=== PATIENT | female | born 1960 | race Two or more races ===

== ENCOUNTER 2017-06-27 19:11 | Emergency (ER) | payer OTHER ==
[~2017-06-27] VITALS: Ht 175.3 cm; Wt 111.6 kg
--- NOTE | 2017-06-27 19:15 | NUR ---
PT AMBULATORY TO ER BED 6. PT BIB SELF S/P GLF, C/O PAIN IN BILAT KNEES AND BILAT WRIST. NOTED HEMATOMA OVER RIGHT EYE, DENIES LOC. PT PLACED IN GOWN AND ON MERCHANDISING COORDINATOR. VSS/RESP EVEN UNLABORED/NAD NOTED/SKIN WARM AND DRY/DENIES N-V-D/AFEBRILE/AOX4. AWAITING MD ARANA.
--- NOTE | 2017-06-27 19:20 | NUR ---
MD AWARE OF PT B/P. NO NEW ORDERS RECEIVED.
--- NOTE | 2017-06-27 19:47 | NUR ---
PT TO CT VIA STRETCHER. VSS.
--- NOTE | 2017-06-27 20:04 | NUR ---
PT BACK FROM CT.
--- NOTE | 2017-06-27 22:40 | NUR ---
ASSUMED D/C CARE ONLY AT THIS TIME ON BEHALF OF PRIMARY NURSE HEIDY. Patient discharged to home in stable condition. Written and verbal after care instructions given. Patient verbalizes understanding of instruction. Ambulatory with a steady gait accompanied by family.
[2017-06-27 22:42] VITALS: BP 151/94
== END 2017-06-27 22:44 | disposition home or self-care (01) ==
LOC: ER 19:13
DX: S09.8XXA Other specified injuries of head, initial encounter (principal); S05.11XA Contusion of eyeball and orbital tissues, right eye, initial encounter; S80.212A Abrasion, left knee, initial encounter; W01.0XXA Fall on same level from slipping, tripping and stumbling without subsequent striking against object, initial encounter; Y93.01 Activity, walking, marching and hiking; Y92.89 Other specified places as the place of occurrence of the external cause; Y99.8 Other external cause status
CPT/HCPCS: 70450; 70486; 72125; 73130 ×2; 99284; A4606; Z7610